=== PATIENT | male | born 1945 | race Caucasian/White ===

== ENCOUNTER 2018-06-03 12:34 | Observation (INO) | payer MEDICARE, SELFPAY ==
[2018-06-03 12:48] VITALS: BP 200/110; PULSE 48; RESP 14; TEMP 36.6; O2SAT 100; BMI 35.2
--- NOTE | 2018-06-03 13:03 | DI.RAD.S_ITS ---
PROCEDURE: XR CHEST 2V INDICATIONS: cough / c/o sob. Pt in ED waiting area. TECHNIQUE: 2 views of the chest were acquired. COMPARISON: None. FINDINGS: Surgical changes and devices: None. Lungs and pleura: No pleural effusions or pneumothorax. Lungs are clear. Mediastinum: Mediastinal contours are normal. Heart size is normal. Bones and chest wall: No suspicious bony abnormalities. Soft tissues appear unremarkable. IMPRESSION: Normal for age. Source of current symptoms is not seen. Dictated by: John Jean M.D. on 06/03/2018 at 14:16 Approved by: John Jean M.D. on 06/03/2018 at 14:17
[2018-06-03 13:44] VITALS: BP 175/90; PULSE 39; RESP 22; O2SAT 97
--- NOTE | 2018-06-03 13:47 | ED_ITS ---
HPI - SOB/Dyspnea General Chief Complaint: Shortness of Breath/Dyspnea Stated Complaint: cant catch his breath Time Seen by Provider: 06/03/18 13:16 Source: patient Mode of arrival: ambulatory Limitations: no limitations History of Present Illness This is a 73-year-old male who comes in with complaint of shortness of breath that was earlier this morning. Patient states he feels like there is mucus sort of in his throat and chest. He is feels that he felt like he should cough it up but he was not really bringing anything up. He denies any chest pain or pressure, he denies any shortness of breath currently. He denies any fevers. He felt sort of hot and cold earlier today. He has not had any nausea or vomiting no GI or urinary symptoms. No swelling in his lower extremities. He does have a history of hypertension which she takes losartan for. He has history of gout. He has a history of bradycardia which he states he is normally low in his heart rate. He has had ACL repair and tonsillectomy. He has a very remote history of tobacco use but none recent. No EtOH or illicit. I sees Donna Mccoy is his primary care physician. Related Data Home Medications Medication Instructions Recorded Confirmed losartan 25 mg PO DAILY 06/03/18 06/03/18 Allergies Allergy/AdvReac Type Severity Reaction Status Date / Time No Known Drug Allergies Allergy Verified 06/03/18 12:52 Review of Systems Review of Systems All systems reviewed & are unremarkable except as noted in HPI and below Constitutional Denies fever(s) and Denies lethargy Cardiovascular Denies chest pain, Denies diaphoresis, Denies edema, Denies irregular heart rhythm, Denies lightheadedness, Denies palpitations, Reports dyspnea, Denies dyspnea on exertion and Denies orthopnea Respiratory Reports chest congestion, Denies cough, Denies hemoptysis, Denies excessive phlegm production, Denies pain with cough, Reports dyspnea, Denies dyspnea on exertion and Denies wheezing Gastrointestinal Gastrointestinal: Denies abdominal pain, Denies change in bowel habits, Denies diarrhea, Denies nausea and Denies vomiting Genitourinary Denies hematuria, Denies flank pain, Denies urinary incontinence and Denies urinary urgency Endocrine Denies palpitations Allergic/Immunologic Denies wheezing PFSH Medical History Bradycardia (Acute) Gout (Acute) Hypertension (Acute) Surgical History History of tonsillectomy (Acute) S/P ACL repair (Acute) Social History Smoking Status: Former smoker alcohol intake: former substance use type: does not use Exam Narrative Exam Narrative: GENERAL: Alert and oriented x three, well-nourished, well- appearing male who is quite animated during discussion. Patient appears in no acute distress. HEENT: Head normocephalic, atraumatic, EOMI, pupils reactive, face symmetric, moist mucous membranes NECK: Supple, full range of motion CARDIOVASCULAR: Regular rate and rhythm without murmurs, rubs or gallops. No edema bilateral lower extremities. RESPIRATORY: Breath sounds equal bilaterally, no wheezes rales or rhonchi. Speaks in full sentences, no tachypnea or accessory muscle use. Patient has a wet sounding cough intermittently. ABDOMEN: Soft, nontender. Normoactive bowel sounds all 4 quadrants. No guarding or rebound, rigidity, no mass : No CVA tenderness EXTREMITIES: Normal range of motion, no clubbing or edema. Neurovascularly intact NEUROLOGICAL: Cranial nerves II through XII grossly intact. Moving all extremities SKIN: Warm, dry, no petechiae, no rashes or lesions. Initial Vital Signs Initial Vital Signs: Vital Signs Temperature 97.9 F 06/03/18 12:48 Pulse Rate 48 L 06/03/18 12:48 Respiratory Rate 14 06/03/18 12:48 Blood Pressure 200/110 H 06/03/18 12:48 Pulse Oximetry 100 06/03/18 12:48 Course Orders Ordered: ED Orders 06/03/18 13:03 Chest [XR chest 2V] Stat EKG-12 Lead Stat 06/03/18 13:20 B Type Natriuretic Peptide Stat Complete Blood Count AUTO DIFF Stat Comprehensive Metabolic Panel Stat Lipid Panel Routine Magnesium Stat Partial Thromboplastin Time Stat Prothrombin Time INR Stat Troponin & CK Cardiac Panel Stat 06/03/18 13:23 Consult to Respiratory Therapy Evaluate & Treat 06/03/18 13:47 D Dimer Stat Hemoglobin A1C % Routine 06/03/18 14:49 Education, smoking cessation ONGOING 06/03/18 14:52 EC echo doppler complete Routine 06/03/18 15:14 EKG-12 Lead Stat 06/03/18 15:30 Troponin I Stat Discontinued Medications Acetaminophen (Tylenol) 650 mg PO Q6HR PRN PRN Reason: As Needed for Fever/Mild Pain Al Hydrox/Mg Hydrox/Simethicone (Maalox Plus) 30 ml PO Q6HR PRN PRN Reason: Dyspepsia Bisacodyl (Dulcolax) 10 mg [place] DAILY PRN PRN Reason: Constipation Docusate Sodium (Colace) 100 mg PO BID ERICH Naloxone HCl (Narcan) 0.2 mg IV Q2MIN PRN PRN Reason: Opiate Reversal Ondansetron HCl (Zofran Odt) 4 mg PO Q8HR PRN PRN Reason: Nausea And Vomiting Oxycodone HCl (Percolone) 5 mg PO Q6HR PRN PRN Reason: Pain, Moderate (4-6) Vital Signs - 8 hr 06/03/18 12:48 06/03/18 13:44 06/03/18 14:48 Temperature 97.9 F Pulse Rate 48 L 39 L 36 L Respiratory Rate 14 22 18 Blood Pressure 200/110 H Blood Pressure [Right Arm] 175/90 H 155/92 H Pulse Oximetry 100 97 95 06/03/18 15:30 06/03/18 16:42 Temperature 98.2 F Pulse Rate 37 L 40 L Respiratory Rate 18 18 Blood Pressure 184/92 H Blood Pressure [Right Arm] 189/97 H Pulse Oximetry 97 99 MDM - SOB/Dyspnea Lab Data Attestation: I reviewed the patient's lab results. Result diagrams: 06/03/18 13:20 06/03/18 13:20 Lab Results 06/03/18 06/03/18 06/03/18 Range/Units 13:20 13:20 13:20 WBC 6.7 (4.5-11.0) X10^3/uL RBC 4.40 L (4.5-5.9) X10^6/uL Hgb 12.6 L (13.5-17.5) g/dL Hct 38.7 L (41-53) % MCV 87.9 (80-100) fL MCH 28.6 (26-34) PG MCHC 32.5 (30-36) % RDW 14.4 (11.6-14.8) % Plt Count 208 (150-400) X10^3/uL Neut % (Auto) 73.3 (50-75) % Lymph % (Auto) 19.7 L (25-40) % [place] % (Auto) 5.6 (3-14) % Eos % (Auto) 0.8 L (2-4) % Baso % (Auto) 0.6 (0-2) % Neut # (Auto) 4900 (9472-3279) /uL PT 13.2 H (10.1-12.7) SECONDS INR 1.2 (0.9-1.3) APTT 30 (26.4-36.2) SECONDS D-Dimer (<230) ng/mL Sodium (137-145) mmol/L Potassium (3.4-5.1) mmol/L Chloride (98-107) mmol/L Carbon Dioxide (22-32) mmol/L BUN (9-20) mg/dL Creatinine (0.66-1.25) mg/dL Estimated GFR (>60) mL/min BUN/Creatinine Ratio (6-22) Glucose (80-110) mg/dL Hemoglobin A1c (4.0-6.0) % Calcium (8.4-10.2) mg/dL Magnesium 1.8 (1.6-2.3) mg/dL Total Bilirubin (0.2-1.3) mg/dL AST (17-59) IU/L ALT (21-72) IU/L Alkaline Phosphatase (38-126) U/L Total Creatine Kinase 92 (55-170) U/L CK-MB (CK-2) TNP CK-MB (CK-2) Rel Index TNP Troponin I 0.069 H (0.01-0.034) ng/mL B-Natriuretic Peptide 359.0 H (<100) Total Protein (6.3-8.2) g/dL Albumin (3.5-5.0) g/dL Globulin (1.7-4.1) g/dL Albumin/Globulin Ratio (1.0-2.8) Triglycerides (35-150) mg/dL Cholesterol (140-199) mg/dL LDL Cholesterol, Calc (<100) mg/dL HDL Cholesterol (40-60) mg/dL 06/03/18 06/03/18 06/03/18 Range/Units 13:20 13:20 13:47 WBC (4.5-11.0) X10^3/uL RBC (4.5-5.9) X10^6/uL Hgb (13.5-17.5) g/dL Hct (41-53) % MCV (80-100) fL MCH (26-34) PG MCHC (30-36) % RDW (11.6-14.8) % Plt Count (150-400) X10^3/uL Neut % (Auto) (50-75) % Lymph % (Auto) (25-40) % [place] % (Auto) (3-14) % Eos % (Auto) (2-4) % Baso % (Auto) (0-2) % Neut # (Auto) (4664-3541) /uL PT (10.1-12.7) SECONDS INR (0.9-1.3) APTT (26.4-36.2) SECONDS D-Dimer (<230) ng/mL Sodium 144 (137-145) mmol/L Potassium 4.0 (3.4-5.1) mmol/L Chloride 106 (98-107) mmol/L Carbon Dioxide 25 (22-32) mmol/L BUN 20 (9-20) mg/dL Creatinine 1.30 H (0.66-1.25) mg/dL Estimated GFR 54.4 L (>60) mL/min BUN/Creatinine Ratio 15.4 (6-22) Glucose 110 (80-110) mg/dL Hemoglobin A1c 5.4 (4.0-6.0) % Calcium 9.3 (8.4-10.2) mg/dL Magnesium (1.6-2.3) mg/dL Total Bilirubin 0.7 (0.2-1.3) mg/dL AST 29 (17-59) IU/L ALT 54 (21-72) IU/L Alkaline Phosphatase 100 (38-126) U/L Total Creatine Kinase (55-170) U/L CK-MB (CK-2) CK-MB (CK-2) Rel Index Troponin I (0.01-0.034) ng/mL B-Natriuretic Peptide (<100) Total Protein 7.2 (6.3-8.2) g/dL Albumin 4.2 (3.5-5.0) g/dL Globulin 3.0 (1.7-4.1) g/dL Albumin/Globulin Ratio 1.4 (1.0-2.8) Triglycerides 76 (35-150) mg/dL Cholesterol 134 L (140-199) mg/dL LDL Cholesterol, Calc 82 (<100) mg/dL HDL Cholesterol 37 L (40-60) mg/dL 06/03/18 06/03/18 Range/Units 13:47 15:30 WBC (4.5-11.0) X10^3/uL RBC (4.5-5.9) X10^6/uL Hgb (13.5-17.5) g/dL Hct (41-53) % MCV (80-100) fL MCH (26-34) PG MCHC (30-36) % RDW (11.6-14.8) % Plt Count (150-400) X10^3/uL Neut % (Auto) (50-75) % Lymph % (Auto) (25-40) % [place] % (Auto) (3-14) % Eos % (Auto) (2-4) % Baso % (Auto) (0-2) % Neut # (Auto) (6821-5982) /uL PT (10.1-12.7) SECONDS INR (0.9-1.3) APTT (26.4-36.2) SECONDS D-Dimer 769 H (<230) ng/mL Sodium (137-145) mmol/L Potassium (3.4-5.1) mmol/L Chloride (98-107) mmol/L Carbon Dioxide (22-32) mmol/L BUN (9-20) mg/dL Creatinine (0.66-1.25) mg/dL Estimated GFR (>60) mL/min BUN/Creatinine Ratio (6-22) Glucose (80-110) mg/dL Hemoglobin A1c (4.0-6.0) % Calcium (8.4-10.2) mg/dL Magnesium (1.6-2.3) mg/dL Total Bilirubin (0.2-1.3) mg/dL AST (17-59) IU/L ALT (21-72) IU/L Alkaline Phosphatase (38-126) U/L Total Creatine Kinase (55-170) U/L CK-MB (CK-2) CK-MB (CK-2) Rel Index Troponin I 0.067 H (0.01-0.034) ng/mL B-Natriuretic Peptide (<100) Total Protein (6.3-8.2) g/dL Albumin (3.5-5.0) g/dL Globulin (1.7-4.1) g/dL Albumin/Globulin Ratio (1.0-2.8) Triglycerides (35-150) mg/dL Cholesterol (140-199) mg/dL LDL Cholesterol, Calc (<100) mg/dL HDL Cholesterol (40-60) mg/dL Imaging Data Chest x-ray: Radiologist's impression: [address] [address] XRay Report Signed Patient: Vladimir Izaguirre Iii FMR#: [id number] : 7Acct:[id number] Age/Sex: 73 / MDate of Service: 06/03/18 Loc: ED Accession Number: [id number] Procedure: XR chest 2V Ordering Provider: Kaylene Disla D.O. PROCEDURE: XR CHEST 2V INDICATIONS: cough / c/o sob. Pt in ED waiting area. TECHNIQUE: 2 views of the chest were acquired. COMPARISON: None. FINDINGS: Surgical changes and devices: None. Lungs and pleura: No pleural effusions or pneumothorax. Lungs are clear. Mediastinum: Mediastinal contours are normal. Heart size is normal. Bones and chest wall: No suspicious bony abnormalities. Soft tissues appear unremarkable. IMPRESSION: Normal for age. Source of current symptoms is not seen. Dictated by: John Jean M.D. on 06/03/2018 at 14:16 Approved by: John Jean M.D. on 06/03/2018 at 14:17 ECG Data Attestation: I personally reviewed and interpreted this ECG as follows: Interpretation: Sinus bradycardia rate of 37, P are 182, [place] 114 and QTC of 403. No ST elevation appreciated. Nonspecific changes. EKG 2. Shows a sinus bradycardia at a rate of 38 P are 173, QRS of 104 and QTC of 424. Nonspecific ST change. MDM Narrative Medical decision making narrative: Patient has a indeterminate troponin. Patient comes in with hypertension, bradycardia. Complaining of feeling congested in his upper chest or feeling like there is mucus. He has had a little bit of a cough but he has no other infectious symptoms. His troponin could be related to his chronic kidney disease as his renal function is slightly decreased although appears to be at his baseline. But he does not have any clear ST changes he does have nonspecific change would recommend chest pain observation with treatment of his hypertension. The patient is denying any symptoms currently. Donna Mccoy is his primary care physician. Spoke with Dr. Kilgore who accepts for observation. After discussion with patient he is reluctant to be observed. Refusing at this time. I asked that he would at least stay for a 2nd troponin and repeat EKG to make sure his troponin is not continuing to climb. He is willing to do that at this time. Dr. Kilgore did order a D-dimer which was elevated, by age cut off it should be 710 his a slightly elevated over 769 I discussed with patient that the only way to rule out a pulmonary embolism this to do a CT scan of his chest. He defers that at this time. I suspect he does not have a PE as he is not hypoxic, he is not tachycardic although I cannot rule this out made that aware to the patient. He was encouraged to return at any time for re-evaluation. I also encouraged him to see his physician about his hypertension as his blood pressure was elevated a quite regularly in the emergency department. Um I did share my concerns about a potential cardiac cause for his symptoms today. Patient did receive discharge paperwork with follow up instructions but these are not transferring across into chart. These did note that I had not ruled out any potential deadly causes and that patient was recommended to be observed here overnight in the hospital even though he chose not to be. Discharge Plan Departure Patient Disposition: Home Clinical Impression: Dyspnea Discharge Date/Time: 06/03/18 16:48 Interventions: ED Discharge Assessment Last Done: 06/03/18 16:42 Admit Date/Time: 06/03/18 14:48 Admit Provider: Marko Jones
[2018-06-03 13:52] LABS: Add Manual Diff / Slide Review NO; Basophils Percent Auto 0.6 % (0-2); Eosinophils Percent Auto 0.8 % (2-4); Hematocrit 38.7 % (41-53); Hemoglobin 12.6 g/dL (13.5-17.5); Lymphocytes Percent Auto 19.7 % (25-40); Mean Corpuscular HGB Conc 32.5 % (30-36); Mean Corpuscular Hemoglobin 28.6 PG (26-34); Mean Corpuscular Volume 87.9 fL (80-100); Monocytes Percent Auto 5.6 % (3-14); Neutrophils Absolute Auto 4900 /uL (3000-5900); Neutrophils Percent Auto 73.3 % (50-75); Platelet Count 208 X10^3/uL (150-400); Red Cell Distribution Width 14.4 % (11.6-14.8); White Blood Cell Count 6.7 X10^3/uL (4.5-11.0)
[2018-06-03 13:59] LABS: INR 1.2 (0.9-1.3); Prothrombin Time 13.2 SECONDS (10.1-12.7)
[2018-06-03 14:02] LABS: PTT Partial Thromboplastin Tim 30 SECONDS (26.4-36.2)
[2018-06-03 14:03] LABS: Creatine Kinase 92 U/L (55-170); Magnesium 1.8 mg/dL (1.6-2.3)
[2018-06-03 14:06] LABS: Alanine Aminotransferase 54 IU/L (21-72); Albumin 4.2 g/dL (3.5-5.0); Albumin Globulin Ratio 1.4 (1.0-2.8); Alkaline Phosphatase 100 U/L (38-126); Aspartate Aminotransferase 29 IU/L (17-59); BUN Creatinine Ratio 15.4 (6-22); Bilirubin Total 0.7 mg/dL (0.2-1.3); Blood Urea Nitrogen 20 mg/dL (9-20); Calcium 9.3 mg/dL (8.4-10.2); Carbon Dioxide 25 mmol/L (22-32); Chloride 106 mmol/L (98-107); Estimated Glomerular Filt Rate 54.4 mL/min (>60); Glucose 110 mg/dL (80-110); HEMOLYSIS < 15 (0-50); Sodium 144 mmol/L (137-145); Total Protein 7.2 g/dL (6.3-8.2)
[2018-06-03 14:14] LABS: Troponin I 0.069 ng/mL (0.01-0.034)
[2018-06-03 14:48] VITALS: BP 155/92; PULSE 36; RESP 18; O2SAT 95
[2018-06-03 15:11] LABS: D Dimer 769 ng/mL (<230)
[2018-06-03 15:17] LABS: Hemoglobin A1C% w Est Avg Glu 5.4 % (4.0-6.0)
[2018-06-03 15:17] LABS: Cholesterol 134 mg/dL (140-199); HDL Cholesterol 37 mg/dL (40-60); LDL Cholesterol Calculated 82 mg/dL (<100); Triglycerides 76 mg/dL (35-150)
[2018-06-03 15:30] VITALS: BP 189/97; PULSE 37; RESP 18; O2SAT 97
--- NOTE | 2018-06-03 15:53 | RT ---
Pt has had 2 EKGs in ER, #1 at 1302, #2 at 1545, both given to Dr. Burger at 1302 and 1545.
[2018-06-03 16:08] LABS: Troponin I 0.067 ng/mL (0.01-0.034)
[2018-06-03 16:42] VITALS: BP 184/92; PULSE 40; RESP 18; TEMP 36.8; O2SAT 99
== END 2018-06-03 17:00 | disposition home or self-care (01) ==
LOC: ED 14:46 → AC 14:48
PROVIDERS: Admitting Provider Internal Medicine; Emergency Provider Emergency Medicine; PCP Physician Assistant; Visit Provider Internal Medicine
DX: R06.02 Shortness of breath (principal); I10 Essential (primary) hypertension; R00.1 Bradycardia, unspecified; Z87.891 Personal history of nicotine dependence; N18.9 Chronic kidney disease, unspecified; Z53.21 Procedure and treatment not carried out due to patient leaving prior to being seen by health care provider
CPT/HCPCS: 36415; 36591; 71046; 80053; 80061; 82550; 83036; 83735; 83880; 84484; 85025; 85379; 85610; 85730; 93005; 93010; 99283; 99285; G0378

== ENCOUNTER → 2018-06-13 12:09 | Outpatient (CLI) | payer MEDICARE, SELFPAY ==
--- NOTE | 2018-06-13 | DI.US.S_ITS ---
PROCEDURE: US RENAL COMPLETE INDICATIONS: HYPERTENSION TECHNIQUE: Real-time scanning was performed of the kidneys and bladder, with image documentation. COMPARISON: [facility], CT, KIDNEY/ URETER/BLADDER, 07/23/2014, 12:18. FINDINGS: Kidneys: Kidneys are normal in size. Right kidney measures 12.2 cm long; left kidney measures 12.2 cm long. Right renal cortical thickness is 1 8.cm; left renal cortical thickness is 1.3 cm. Renal cortical echotexture is normal. No hydronephrosis or nephrolithiasis. No suspicious solid mass lesions. Urinary bladder decompressed and suboptimally visualized. Bilateral renal cysts largest on the right measuring up to 2.6 cm and 4.1 cm on the left. Bladder: Miscellaneous: No free pelvic fluid. IMPRESSION: Bilateral renal cysts. Dictated by: Ortiz Mosqueda [facility] Interpreted: Jatinder Rosenthal MD on 06/13/2018 at 14:21 Approved by: Jatinder Rosenthal M.D. on 06/13/2018 at 15:33
== END ==
PROVIDERS: PCP Physician Assistant; Visit Provider Physician Assistant
DX: N28.1 Cyst of kidney, acquired (principal); I10 Essential (primary) hypertension
CPT/HCPCS: 76770

== ENCOUNTER → 2019-01-02 07:52 | Outpatient (CLI) | payer MEDICARE, SELFPAY ==
[2019-01-02 08:08] LABS: WBC Urine None Seen (0-5/HPF)
[2019-01-02 08:45] LABS: Add Manual Diff / Slide Review NO; Basophils Absolute Auto 100 /uL (0-100); Basophils Percent Auto 0.8 % (0-2); Eosinophils Absolute Auto 100 /uL (0-450); Eosinophils Percent Auto 1.8 % (2-4); Hematocrit 42.7 % (41-53); Hemoglobin 14.5 g/dL (13.5-17.5); Lymphocytes Absolute Auto 2100 /uL (1100-4500); Lymphocytes Percent Auto 29.2 % (25-40); Mean Corpuscular HGB Conc 33.9 % (30-36); Mean Corpuscular Hemoglobin 29.1 PG (26-34); Mean Corpuscular Volume 85.9 fL (80-100); Monocytes Absolute Auto 500 /uL (0-900); Monocytes Percent Auto 6.5 % (3-14); Neutrophils Absolute Auto 4500 /uL (1500-7000); Neutrophils Percent Auto 61.7 % (50-75); Platelet Count 208 X10^3/uL (150-400); Red Blood Cell Count 4.97 X10^6/uL (4.5-5.9); Red Cell Distribution Width 14.1 % (11.6-14.8); White Blood Cell Count 7.3 X10^3/uL (4.5-11.0)
[2019-01-02 08:50] LABS: Appearance Urine UA CLEAR; Bilirubin Urine UA NEGATIVE (NEGATIVE); Color Urine UA YELLOW; Glucose Urine UA NEGATIVE (Negative); Ketones Urine UA NEGATIVE (NEGATIVE); Leukocyte Esterase Urine UA NEGATIVE (NEGATIVE); Nitrite Urine UA NEGATIVE (Negative); Occult Blood Urine UA 1+ (Negative); Protein Urine UA NEGATIVE (Negative); Urobilinogen Urine UA 0.2 E.U./dL (0.2)
[2019-01-02 09:14] LABS: BUN Creatinine Ratio 17.3 (6-22); Bacteria Urine Occasional (0-1); Blood Urea Nitrogen 26 mg/dL (9-20); Calcium 9.9 mg/dL (8.4-10.2); Carbon Dioxide 26 mmol/L (22-32); Chloride 101 mmol/L (98-107); Culture Indicated Urine Cult Not Indicated; Estimated Glomerular Filt Rate 46.1 mL/min (>60); Glucose 117 mg/dL (80-110); HEMOLYSIS < 15 (0-50); Phosphorous 2.9 mg/dL (2.3-3.7); Potassium 3.6 mmol/L (3.4-5.1); RBC Urine 0-1/HPF (0-5/HPF); Sodium 138 mmol/L (137-145)
[2019-01-02 09:20] LABS: HEMOLYSIS < 15 (0-50); Iron 70 ug/dL (49-181)
[2019-01-02 09:31] LABS: Percent Iron Saturation 20 % (20-50); Total Iron Binding Capacity 344 ug/dL (261-462); Transferrin 255 mg/dL (206-381)
[2019-01-02 09:48] LABS: Creatinine Urine Random 128.3 mg/dL; Protein (Total) Urine Random 12 mg/dL (0-12); Protein Creatinine Ratio Urine 0.09 GRAM/24H
[2019-01-03 13:54] LABS: Parathyroid Hormone Int 58 pg/mL (14-64)
== END ==
PROVIDERS: PCP Physician Assistant; Visit Provider Student in an Organized Health Care Education/Training Program
DX: N18.9 Chronic kidney disease, unspecified (principal); E21.1 Secondary hyperparathyroidism, not elsewhere classified; D63.1 Anemia in chronic kidney disease; N39.0 Urinary tract infection, site not specified; R80.9 Proteinuria, unspecified
CPT/HCPCS: 36415; 80048; 81001; 82570; 82728; 83540; 83550; 83970; 84100; 84156; 85025

== ENCOUNTER → 2019-07-09 09:45 | Outpatient (CLI) | payer MEDICARE, SELFPAY ==
[2019-07-09 10:18] LABS: Hematocrit 45.4 % (41-53); Hemoglobin 14.9 g/dL (13.5-17.5)
[2019-07-09 10:46] LABS: BUN Creatinine Ratio 17.5 (6-22); Blood Urea Nitrogen 28 mg/dL (9-20); Calcium 10.3 mg/dL (8.4-10.2); Carbon Dioxide 26 mmol/L (22-32); Chloride 105 mmol/L (98-107); Estimated Glomerular Filt Rate 42.7 mL/min (>60); Glucose 115 mg/dL (80-110); HEMOLYSIS < 15 (0-50); Potassium 4.6 mmol/L (3.4-5.1); Sodium 142 mmol/L (137-145)
[2019-07-12 14:29] LABS: Parathyroid Hormone Int 37 pg/mL (14-64)
== END ==
PROVIDERS: PCP Physician Assistant; Visit Provider Student in an Organized Health Care Education/Training Program
DX: N05.9 Unspecified nephritic syndrome with unspecified morphologic changes (principal); D64.9 Anemia, unspecified; N25.81 Secondary hyperparathyroidism of renal origin; R80.9 Proteinuria, unspecified
CPT/HCPCS: 36415; 80048; 83970; 85014; 85018

== ENCOUNTER → 2019-07-10 09:55 | Outpatient (CLI) | payer MEDICARE, SELFPAY ==
[2019-07-10 11:38] LABS: Creatinine Urine Random 179.6 mg/dL; Protein (Total) Urine Random 16 mg/dL (0-12); Protein Creatinine Ratio Urine 0.08 GRAM/24H
== END ==
PROVIDERS: PCP Physician Assistant; Visit Provider Student in an Organized Health Care Education/Training Program
DX: R80.9 Proteinuria, unspecified (principal)
CPT/HCPCS: 82570; 84156

== ENCOUNTER 2021-03-05 19:47 | Emergency (ER) | payer MEDICARE, SELFPAY ==
[2021-03-05 20:53] VITALS: BP 192/113; PULSE 81; RESP 14; TEMP 36.6; O2SAT 97; BMI 31.4
--- NOTE | 2021-03-05 20:58 | DI.RAD.S_ITS ---
PROCEDURE: XR CHEST 1V INDICATIONS: chest pain TECHNIQUE: One view of the chest was acquired. COMPARISON: [facility], CR, XR CHEST 2V, 06/03/2018, 12:47. FINDINGS: Surgical changes and devices: None. Lungs and pleura: Lungs are clear. No pleural effusions or pneumothorax. Mediastinum: Mediastinal contours appear normal. Heart size is normal. Bones and chest wall: No suspicious bony lesions. Moderate to severe degenerative changes are present in the right shoulder, progressed since the prior study. Overlying soft tissues appear unremarkable. IMPRESSION: No acute cardiopulmonary disease. Dictated by: Azul Aguero M.D. on 03/05/2021 at 21:47 Approved by: Azul Aguero M.D. on 03/05/2021 at 21:47
[2021-03-05 21:19] LABS: Add Manual Diff / Slide Review NO; Basophils Absolute Auto 100 /uL (0-100); Eosinophils Absolute Auto 100 /uL (0-450); Eosinophils Percent Auto 1.2 % (2-4); Hematocrit 44.4 % (41-53); Hemoglobin 14.6 g/dL (13.5-17.5); Lymphocytes Absolute Auto 2100 /uL (1100-4500); Mean Corpuscular HGB Conc 32.8 % (30-36); Mean Corpuscular Hemoglobin 28.7 PG (26-34); Mean Corpuscular Volume 87.5 fL (80-100); Monocytes Absolute Auto 600 /uL (0-900); Monocytes Percent Auto 7.1 % (3-14); Neutrophils Absolute Auto 5400 /uL (1500-7000); Neutrophils Percent Auto 65.7 % (50-75); Platelet Count 210 X10^3/uL (150-400); Red Blood Cell Count 5.07 X10^6/uL (4.5-5.9); Red Cell Distribution Width 14.7 % (11.6-14.8); White Blood Cell Count 8.3 X10^3/uL (4.5-11.0)
[2021-03-05 21:31] LABS: Alanine Aminotransferase 36 IU/L (<50); Albumin 4.9 g/dL (3.5-5.0); Albumin Globulin Ratio 1.4 (1.0-2.8); Alkaline Phosphatase 129 U/L (38-126); Aspartate Aminotransferase 35 IU/L (17-59); BUN Creatinine Ratio 17.7 (6-22); Bilirubin Total 0.7 mg/dL (0.2-1.3); Blood Urea Nitrogen 25 mg/dL (9-20); Carbon Dioxide 19 mmol/L (22-32); Chloride 109 mmol/L (98-107); Creatine Kinase 103 U/L (55-170); Estimated Glomerular Filt Rate 49.3 mL/min (>60); Globulin 3.5 g/dL (1.7-4.1); Glucose 106 mg/dL (80-110); HEMOLYSIS < 15 (0-50); Lipase 230 U/L (23-300); Sodium 141 mmol/L (137-145); Total Protein 8.4 g/dL (6.3-8.2)
[2021-03-05 21:42] LABS: Troponin I 0.029 ng/mL (0.01-0.034)
[2021-03-05 21:47] LABS: CKMB % Relative Index 1.2 % (1.5-5.0); Creatine Kinase MB 1.27 ng/mL (<2.37)
--- NOTE | 2021-03-05 23:14 | ED_ITS ---
HPI - Chest Pain General Chief Complaint: Chest Pain Stated Complaint: Faintness, Pain in Right Side, Fatigue Time Seen by Provider: 03/05/21 20:40 Source: patient Mode of arrival: Ambulatory Limitations: no limitations History of Present Illness HPI narrative: 75-year-old gentleman who has a history of hypertension with severe medical phobias and notes that any time he comes into hospital his blood pressures are significantly elevated. He comes in today complaining of feeling faint a mild pain in the right side worse with deep breaths, fatigue and severe right nipple pain. He symptoms have been present for 4 days and he initially noted them after his 20 lb siamese cat had been sleeping on his chest and ne eding his sure just over his right nipple. He has noted no palpitations, no dyspnea, orthopnea, vomiting, abdominal pain, diarrhea or dysuria. He notes the pain truly is centered right under his nipple and presents for reassurance that this is not a cardiac issue. Related Data Home Medications Medication Instructions Recorded Confirmed losartan 25 mg tablet 25 mg PO DAILY 06/03/18 06/03/18 Allergies Allergy/AdvReac Type Severity Reaction Status Date / Time No Known Drug Allergies Allergy Verified 03/05/21 20:53 Review of Systems Review of Systems Narrative: Remainder of complete review of systems is otherwise unremarkable except for that included in the HPI. Patient History Medical History (Updated 03/05/21 @ 23:32 by Rocio Walker MD) Bradycardia Gout Hypertension Surgical History (Updated 06/03/18 @ 14:05 by Kaylene Disla DO) History of tonsillectomy S/P ACL repair Social History (Updated 06/03/18 @ 19:36 by Kaylene Disla DO) Smoking Status: Former smoker alcohol intake: former substance use type: does not use Smoking Status: Former smoker alcohol intake frequency: holidays/special occasions only Substance Use Type: does not use Exam Narrative Exam Narrative: General: Healthy appearing, in no acute distress. Able to give a complete and coherent history. Well-nourished well-developed HEENT: Moist mucous membranes, normal sclera with reactive pupils, Neck: No JVD, supple Respiratory: Lungs are clear to auscultation, no wheezing no rales no rhonchi. Full and symmetrical air movement Chest: No skin changes. Right breast is examined in is unremarkable. Nipple is healthy with no discharge erythema or abscess. He has no axillary adenop athy. Cardiac: Regular rate and rhythm no murmurs no bruits Abdomen: Soft, nontender, good bowel tones, no flank pain Skin: Warm and dry, no rashes Neurologic: Grossly neurologically intact with no obvious asymmetries or abnormalities Extremities: No trauma, well perfused Psych: Cooperative, appropriate insight and affect Initial Vital Signs Initial Vital Signs: Vital Signs Temperature 97.8 F 03/05/21 20:53 Pulse Rate 81 03/05/21 20:53 Respiratory Rate 14 03/05/21 20:53 Blood Pressure 192/113 H 03/05/21 20:53 Pulse Oximetry 97 03/05/21 20:53 Course Orders Ordered: ED Orders 03/05/21 20:58 XR chest 1V Stat EKG-12 Lead Stat 03/05/21 21:00 Complete Blood Count AUTO DIFF Stat Comprehensive Metabolic Panel Stat Lipase Stat Troponin & CK Cardiac Panel Stat Vital Signs Vital signs: Vital Signs - 8 hr 03/05/21 20:53 Temperature 97.8 F Pulse Rate 81 Respiratory Rate 14 Blood Pressure 192/113 H Pulse Oximetry 97 MDM - Chest Pain Lab Data Result diagrams: 03/05/21 21:00 03/05/21 21:00 Labs: Lab Results 03/05/21 03/05/21 Range/Units 21:00 21:00 WBC 8.3 (4.5-11.0) X10^3/uL RBC 5.07 (4.5-5.9) X10^6/uL Hgb 14.6 (13.5-17.5) g/dL Hct 44.4 (41-53) % MCV 87.5 (80-100) fL MCH 28.7 (26-34) PG MCHC 32.8 (30-36) % RDW 14.7 (11.6-14.8) % Plt Count 210 (150-400) X10^3/uL Neut % (Auto) 65.7 (50-75) % Lymph % (Auto) 25.0 (25-40) % [place] % (Auto) 7.1 (3-14) % Eos % (Auto) 1.2 L (2-4) % Baso % (Auto) 1.0 (0-2) % Neut # (Auto) 5400 (6169-8542) /uL Lymph # (Auto) 2100 (2387-6631) /uL [place] # (Auto) 600 (0-900) /uL Eos # (Auto) 100 (0-450) /uL Baso # (Auto) 100 (0-100) /uL Sodium 141 (137-145) mmol/L Potassium 4.0 (3.4-5.1) mmol/L Chloride 109 H (98-107) mmol/L Carbon Dioxide 19 L (22-32) mmol/L BUN 25 H (9-20) mg/dL Creatinine 1.41 H (0.66-1.25) mg/dL Estimated GFR 49.3 L (>60) mL/min BUN/Creatinine Ratio 17.7 (6-22) Glucose 106 (80-110) mg/dL Calcium 10.0 (8.4-10.2) mg/dL Total Bilirubin 0.7 (0.2-1.3) mg/dL AST 35 (17-59) IU/L ALT 36 (<50) IU/L Alkaline Phosphatase 129 H (38-126) U/L Total Creatine Kinase 103 (55-170) U/L CK-MB (CK-2) 1.27 (<2.37) ng/mL CK-MB (CK-2) Rel Index 1.2 L (1.5-5.0) % Troponin I 0.029 (0.01-0.034) ng/mL Total Protein 8.4 H (6.3-8.2) g/dL Albumin 4.9 (3.5-5.0) g/dL Globulin 3.5 (1.7-4.1) g/dL Albumin/Globulin Ratio 1.4 (1.0-2.8) Lipase 230 (23-300) U/L ECG Data Interpretation: [place] at a rate of 83 with a perfusing rate of [address] depression laterally Perfusing beats are similar to prior EKG with bradycardia chronically appreciated MDM Narrative Medical decision making narrative: 75-year-old man presents essentially with right nipple pain. Cardiac etiology is ruled out. There is no pneumonia no pneumothorax, no zoster, cellulitis or abscess. The right breast is palpably normal with no suggestions of masses or tumors that might be causing his pain. He remains dramatically hypertensive in becoming more so with an extended wait in the emergency department. At this point reassurance is given and he is d ischarged home with the caveats that he needs to recheck his blood pressure once he is away from hospital and if his numbers continue as elevated he needs. He is safe for home discharge Discharge Plan Departure Patient Disposition: Home Clinical Impression: Nipple pain Instructions: DI for Musculoskeletal Pain Activity Restrictions/Additional Instructions: Thank you for coming in today Your blood work and exam were very reassuring. Your EKG was abnormal but similar to prior EKGs. Your x-ray was normal. There is no evidence of a heart attack, pneumonia, collapsed lung, broken ribs or cellulitis or overt abnormality with your breast or nipple. I suspect that this is musculoskeletal pain. Using 400 mg of ibuprofen (2 [id number] pills) and 1 Tylenol every 6 hours can be very helpful in controlling pain. If you develop new or worsening symptoms please feel free to return and I am happy to re-evaluate I very much understand that you have a phobia regarding hospitals and that this typically raises your blood pressure. Your blood pressure was significantly elevated today. Please make sure that you are checking at home and do follow-up with your primary care physician. If you would like help in finding a new primary care physician you can contact the [facility] infection prevention coordinator at [phone] I hope you feel better Prescriptions: No Action losartan 25 mg Tablet 25 mg PO DAILY RF: 0
[2021-03-05 23:42] VITALS: BP 140/90; PULSE 54; RESP 18; O2SAT 98
== END 2021-03-05 23:47 | disposition home or self-care (01) ==
PROVIDERS: Emergency Provider Emergency Medicine
DX: N64.4 Mastodynia (principal); R07.9 Chest pain, unspecified; I10 Essential (primary) hypertension
CPT/HCPCS: 36415; 71045; 80053; 82550; 82553; 83690; 84484; 85025; 93005; 99283; 99284